=== PATIENT | male | born 1980 | race Caucasian/White ===

== ENCOUNTER 2022-02-27 18:09 | Emergency (ER) | payer OTHER, SELFPAY ==
--- NOTE | ~2022-02-27 | XR_ITS ---
EXAMINATION: XR HAND, LEFT CLINICAL INFORMATION: Lawnmower on third and fourth finger COMPARISON: None TECHNIQUE: 3 views of the left hand. FINDINGS: Osseous alignment is anatomic. No acute fracture is seen. No significant focal soft tissue abnormality identified. XR/XR hand wrist LT IMPRESSION: No acute findings identified.
[2022-02-27 18:29] VITALS: BP 105/85; PULSE 90; RESP 18; TEMP 36.7; O2SAT 97; BMI 25.7
[2022-02-27 22:32] VITALS: BP 119/84; PULSE 85; TEMP 36.5; O2SAT 99
[2022-02-27] MEDS: Diphth,Pertus(ACell),Tet Adult 0.5 ML SYRINGE IM (22:49)
--- NOTE | 2022-02-27 23:47 | ED_ITS ---
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 patient states complete range of motion of fingers. patient denies any other trauma. patient unaware of last tdap. 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 Yes all other systems are reviewed and are negative [facility] Social History Social History Advance Directives: No Advance Directives Information Provided: Yes Physical Exam Vital Signs: Vital Signs: Last Vital Signs Temp 97.7 F 02/27/22 22:32 Pulse 85 02/27/22 22:32 Resp 18 02/27/22 18:29 BP 119/84 02/27/22 22:32 Pulse Ox 99 02/27/22 22:32 BMI result Body Mass Index 25.7 Const: General: cooperative, healthy appearing, comfortable, no acute distress, well developed, alert, awake and Physically active Orientation/consciousness: patient oriented x3 HEENT: Head: Yes normal to inspection, Yes No palpable skull fracture present, Yes normocephalic, Yes atraumatic and No abrasion Eyes: General: appearance normal, both eyes and all related structures Neck: Neck: Yes normal visual inspection, Yes full ROM, Yes no lym phadenopathy, Yes no meningeal signs, Yes trachea midline and Yes supple Chest: Chest palpation & inspection: normal inspection of the chest and normal palpation of entire chest wall Resp: Effort & Inspection: normal respiratory effort and able to speak in complete sentences Auscultation: clear to auscultation bilaterally Cardio: Jugular venous distension: no JVD Heart sounds: S1 normal heart sound present and S2 normal heart sound present GI: Inspection: Yes normal to inspection and No abdominal wall ecchymosis Palpation (GI): Soft to palpation, not firm, nontender, no guarding and not rigid : General: No CVA tenderness and Yes no CVA tenderness Back/Spine/Pelvis: Back: no CVA tenderness, No CVA tenderness and No back tenderness Skin: General skin exam: no rashes or lesions noted and elasticity normal Neuro: General: patient oriented x3, gait normal, no meningeal signs and CN's II-XI intact bilaterally Cranial nerves: Yes CN's II-XII intact bilaterally Extrem: General: Yes normal to inspection and Yes full ROM Hand/finger images: 1. Laceration/alvusion. complete range of motiont. no tendon/nerve injury. Capillary refill intact. motor, neuro, and vascular exam is intact 2. abrasions. complete range of motiont. no tendon/nerve injury. Capillary refill intact. motor, neuro, and vascular exam is intact Psych: Appearance: grossly normal, well kempt and not disheveled Course Course Course Narrative: Xrays Reevaluation(s) Reevaluation #1: Xrays are normal and laceration repair will be done,. Time: 23:56 Reevaluation #2: Left 4th finger laceration cleaned with sterile saline and betadine. lidoacine 2% 6ml used for for digital block. Due to complexity of partial avulsion on tip of finger and skin. Dr. oviedo recommend suture through nail bed to hold anchor suture. Size 4 nylon was used and 2 sutures were placed. Follow up wiht hand surgeon. Other abrasion cleaned and dressed Time: 00:50 MDM - Wound/Laceration MDM Narrative Medical decision making narrative: partial avulsion with suture through nail. Abrasion Discharge Plan Discharge Clinical Impression: Laceration, Fingernail avulsion, partial, Avulsion of skin, Abrasion Patient Disposition: Home, Self-Care Instructions: Finger Laceration (ED), Abrasion (ED), Nail Avulsion (ED) Additional Instructions: Xray negative for fracture. Due to complexity of laceration you will need to follow up with hand Surgeon. Return to the ED for swelling, redness, pus drainage, foul odor, fever, chills, bluish/black discoloration, red streaks, or any other concerning symptoms. Sutures should be removed in 11 days, but follow up with hand surgeon. Prescriptions: New cephalexin 500 mg capsule 500 mg PO QID 7 Days Qty: 28 0RF naproxen 500 mg tablet 500 mg PO BID PRN (Reason: pain) 10 Days Qty: 20 0RF Referrals: Tamica Burger MD [Physician] - (Complicated partial skin avulsion. Nail involved for laceration repair) Stand Alone Forms: Work/School Release Print Language: Malian
[2022-02-28] MEDS: Lidocaine HCl 2 % MPF 5 ML VIAL INFILTRATI ×2 (00:01)
== END 2022-02-28 01:30 | disposition home or self-care (01) ==
PROVIDERS: Emergency Provider Emergency Medicine
DX: S61.213A Laceration without foreign body of left middle finger without damage to nail, initial encounter (principal); S61.315A Laceration without foreign body of left ring finger with damage to nail, initial encounter; S60.415A Abrasion of left ring finger, initial encounter; M25.532 Pain in left wrist; M79.642 Pain in left hand; W26.9XXA Contact with unspecified sharp object(s), initial encounter; Y93.H2 Activity, gardening and landscaping; Y92.007 Garden or yard of unspecified non-institutional (private) residence as the place of occurrence of the external cause; Y99.9 Unspecified external cause status; Z79.899 Other long term (current) drug therapy
CPT/HCPCS: 12001; 73110; 73130; 90471; 90715; 99281; 99284